=== PATIENT | male | born 1970 | race Caucasian/White ===

== ENCOUNTER 2016-05-12 11:00 | Outpatient (RCR) | payer OTHER | END 2016-06-28 10:26 | disposition home or self-care (01) | LOC: PT 11:00 | DX: Z47.89 Encounter for other orthopedic aftercare (principal) ==

== ENCOUNTER → 2017-02-07 | Outpatient (CLI) | payer OTHER | LOC: RAD 09:23 | DX: M25.561 Pain in right knee (principal); R22.41 Localized swelling, mass and lump, right lower limb ==

== ENCOUNTER → 2021-08-01 | Day surgery (SDC) | payer OTHER | END | disposition home or self-care (01) | LOC: MSO 04-04 10:55 | DX: Z12.11 Encounter for screening for malignant neoplasm of colon (principal); F17.220 Nicotine dependence, chewing tobacco, uncomplicated | CPT/HCPCS: 00812; J2704; J7120 ==